=== PATIENT | male | born 1960 | race African-American/Black ===

== ENCOUNTER 2019-04-01 07:01 | Emergency (ER) | payer BC ==
[~2019-04-01] VITALS: Ht 177.8 cm; Wt 129.7 kg
[2019-04-01] MEDS ORDERED: ZYLOPRIM300 MG PO (07:13)
[2019-04-01] MEDS ORDERED: SINGULAIR 10 MG10 M1 PO (07:13)
[2019-04-01] MEDS ORDERED: INDAPAMIDE2.5 MG PO (07:13)
[2019-04-01] MEDS ORDERED: CARDIZEM CD240 MG PO (07:14)
[2019-04-01] MEDS ORDERED: METFORMIN HCL500 MG PO (07:14)
[2019-04-01] MEDS ORDERED: NORCO 10-325 T1 EACH PO (07:15)
[2019-04-01] MEDS ORDERED: LOSARTAN POTAS100 MG PO (07:15)
[2019-04-01] MEDS ORDERED: CELEBREX 200 M200 M1 PO (07:15)
[2019-04-01] MEDS ORDERED: MOBIC15 MG PO (07:44)
[2019-04-01] MEDS ORDERED: VOLTAREN GEL 1100 G1 TOP (07:44)
[2019-04-01 09:14] VITALS: BP 169/92
[2019-04-01 09:59] LABS: CLARITY CLOUDY; COLOR YELLOW; SOURCE KNEE FLUID; TOTAL VOLUME 15 mL
[2019-04-01 10:15] LABS: BF NUCLEATED CELLS 4122; BF RBC 410
[2019-04-01 10:45] LABS: BF NEUTROPHILS 85
[2019-04-01 10:46] LABS: BF MACROPHAGE 11
== END 2019-04-01 09:36 | disposition home or self-care (01) ==
LOC: ER 07:01
PROVIDERS: Emergency Medicine
DX: M25.562 Pain in left knee (principal); M54.5 Low back pain; M19.90 Unspecified osteoarthritis, unspecified site; M10.9 Gout, unspecified; Z79.899 Other long term (current) drug therapy

== ENCOUNTER 2019-08-02 13:44 | Emergency (ER) | payer BC ==
[~2019-08-02] VITALS: Ht 177.8 cm; Wt 131.5 kg
[~2019-08-02 13:44] MED LIST: CARDIZEM CD240 MG PO; CELEBREX 200 M200 M1 PO; INDAPAMIDE2.5 MG PO; LOSARTAN POTAS100 MG PO; METFORMIN HCL500 MG PO; MOBIC15 MG PO; NORCO 10-325 T1 EACH PO; SINGULAIR 10 MG10 M1 PO; VOLTAREN GEL 1100 G1 TOP; ZYLOPRIM300 MG PO
[2019-08-02 16:20] LABS: CLARITY CLOUDY; COLOR YELLOW; TOTAL VOLUME 140 mL
[2019-08-02 16:33] LABS: BF CRYSTALS No Crystals seen
[2019-08-02 16:34] LABS: BF NUCLEATED CELLS 2387; BF RBC 770
[2019-08-02 17:15] VITALS: BP 153/88
[2019-08-02 17:26] LABS: BF MACROPHAGE 16; BF NEUTROPHILS 82
[2019-08-03] MEDS ORDERED: NORCO 5-325 TA1 EAC1 PO (18:47)
== END 2019-08-02 17:16 | disposition home or self-care (01) ==
LOC: ER 13:44
PROVIDERS: Emergency Medicine
DX: M25.562 Pain in left knee (principal); M25.462 Effusion, left knee; M10.9 Gout, unspecified; I10 Essential (primary) hypertension; E11.9 Type 2 diabetes mellitus without complications; J45.909 Unspecified asthma, uncomplicated

== ENCOUNTER 2019-08-03 14:15 | Emergency (ER) | payer BC ==
[~2019-08-03] VITALS: Ht 177.8 cm; Wt 131.5 kg
[2019-08-03 15:28] LABS: ABSOLUTE NEUTROPHILS 5.8 thou/uL (1.4-8.2); BASOPHILS 0.7 % (0.0-2.0); HEMATOCRIT 43.4 % (42.0-52.0); HEMOGLOBIN 14.4 gm/dL (14.0-18.0); LYMPHOCYTES 19.1 % (24.0-44.0); MCH 27.1 pg (26.0-34.0); MCHC 33.1 g/dL (28.0-37.0); MONOCYTES 10.1 % (1.0-8.0); PLATELET COUNT 200 thou/uL (150-400); POLYS 69.1 % (36.0-66.0); RDW 15.7 % (10.5-14.5); WBC 8.4 thou/uL (4.0-11.0)
[2019-08-03 15:36] LABS: CALCIUM 9.2 mg/dL (8.5-10.1); CREATININE 1.3 mg/dL (0.7-1.3); POTASSIUM 3.5 mmol/L (3.5-5.1)
[2019-08-03 15:43] LABS: TOTAL BILIRUBIN 0.7 mg/dL (<0.1-1.0); TOTAL PROTEIN 7.5 g/dL (6.4-8.2)
[2019-08-03] MEDS ORDERED: NORCO 5-325 TA1 EAC1 PO (18:47)
[2019-08-03 19:08] VITALS: BP 151/93
== END 2019-08-03 19:10 | disposition home or self-care (01) ==
LOC: ER 14:15
PROVIDERS: Emergency Medicine
DX: M25.562 Pain in left knee (principal); M25.462 Effusion, left knee; I10 Essential (primary) hypertension; E11.9 Type 2 diabetes mellitus without complications; J45.909 Unspecified asthma, uncomplicated; M10.9 Gout, unspecified

== ENCOUNTER 2020-06-10 15:42 | Emergency (ER) | payer BC ==
[~2020-06-10] VITALS: Ht 177.8 cm; Wt 132.4 kg
[~2020-06-10 15:42] MED LIST changes: +NORCO 5-325 TA1 EAC1 PO
[2020-06-10] MEDS ORDERED: MITIGARE0.6 MG PO (16:12)
[2020-06-10] MEDS ORDERED: INDOMETHACIN 5050 M1 PO (16:12)
[2020-06-10 17:16] VITALS: BP 150/90
== END 2020-06-10 17:16 | disposition home or self-care (01) ==
LOC: ER 15:42
DX: M10.9 Gout, unspecified (principal); I10 Essential (primary) hypertension; E11.9 Type 2 diabetes mellitus without complications; J45.909 Unspecified asthma, uncomplicated; Z79.899 Other long term (current) drug therapy

== ENCOUNTER 2021-07-03 12:12 | Emergency (ER) | payer OTHER ==
[~2021-07-03] VITALS: Ht 177.8 cm; Wt 127.9 kg
[~2021-07-03 12:12] MED LIST changes: +INDOMETHACIN 5050 M1 PO; +MITIGARE0.6 MG PO
[2021-07-03 12:56] VITALS: BP 178/115
== END 2021-07-03 13:27 | disposition home or self-care (01) ==
LOC: ER 12:12
DX: U07.1 COVID-19 (principal); I10 Essential (primary) hypertension; E11.9 Type 2 diabetes mellitus without complications; J45.909 Unspecified asthma, uncomplicated; Z79.891 Long term (current) use of opiate analgesic; Z79.1 Long term (current) use of non-steroidal anti-inflammatories (NSAID); Z79.899 Other long term (current) drug therapy; Z79.84 Long term (current) use of oral hypoglycemic drugs

== ENCOUNTER 2021-07-08 18:27 | Inpatient (IN) | payer OTHER ==
[~2021-07-08] VITALS: Ht 177.8 cm; Wt 122.0 kg
--- NOTE | ~2021-07-08 | EMS ---
[place] [address] EMS Patient Care Report Name: ANITA RUSHING JR Room #: 361-P ADM IN M.R.#: [id number] Admission: 07/08/21 Attend Phys: José Manuel Baez MD Discharge: Date of : 56 Report #: [id number] THIS REPORT FOR: //name// Report Transmitted: 07/09/2021 07:44 EMS Care Summary [place], [place]/[facility] Incident [id number] @ 07/08/2021 17:35 Incident Location [id number] [place] [address] Patient ANITA RUSHING JR Male, 61 Years 1960 Patient Address [id number] [place] [address] Patient History Diabetes,Hypertension (HTN), Patient Allergies No known allergies, Patient Medications Diltiazem, Monoket, Percocet, Losartan, Atorvastatin, Metformin, Indomethacin, Allopurinol, Chief Complaint COVID Disposition Transported No Lights/[place] Reason Breathing Problem Transported To [facility] Narrative Pt tested positive for COVID -19. Pt states that his and son are both hospitalized for COVID. Pt states that he is SOA, cough, fever off and on and muscle aches. Upon arrival found pt sitting on couch, A&OX4. [place] [address] EMS Patient Care Report Name: ANITA RUSHING JR Room #: 361-P ADM IN M.R.#: [id number] Admission: 07/08/21 Attend Phys: José Manuel Beaz MD Discharge: Date of : 56 Report #: [id number] [facility] ED. NO changes en route. Pt care transferred to [place] ED nursing staff. Initial Vitals @18:00P: 101,R: 18,BP: 149/89,Pain: 0/10,GCS: 15,CO: 0,SpO2: 95,Revised Trauma: 12, @18:07P: 103,R: 18,BP: 150/88,Pain: 4/10,GCS: 15,CO: 0,SpO2: 95,Revised Trauma: 12, Assessments @17:49MENTAL:Place Oriented,Event Oriented,Person Oriented,Time Oriented,SKIN:HEENT:Head/Face: No Abnormalities,Neck/Airway: No Abnormalities,LUNG SOUNDS:Left Upper: No Abnormalities,Right Upper: No Abnormalities,Left Lower: No Abnormalities,Right Lower: No Abnormalities,ABDOMEN:Left Upper: No Abnormalities,Right Upper: No Abnormalities,Left Lower: No Abnormalities,Right Lower: No Abnormalities,PELVIS//GI:No Abnormalities,EXTREMITIES:Left Arm: No Abnormalities,Right Arm: No Abnormalities,Left Leg: No Abnormalities,Right Leg: No Abnormalities,PULSE:NEURO:No Abnormalities, Impression COVID-19 - Confirmed by testing Timeline 17:34,Call Received 17:34,Dispatch Notified 17:35,Dispatched 17:36,En Route 17:47,On Scene 17:49,At Patient 18:00,BP: 149/89 M,PULSE: 101,RR: 18 R,SPO2: 95 Ox,ETCO2: ,BG: ,PAIN: 0,GCS: 15, 18:02,Depart Scene 18:07,BP: 150/88 M,PULSE: 103,RR: 18 R,SPO2: 95 Ox,ETCO2: ,BG: ,PAIN: 4,GCS: 15, 18:18,At Destination 18:31,Call Closed Disclaimer v1.1 Copyright 2020 [employer] This EMS Care Summary contains data elements from the applicable legal record (which may be displayed differently). It is designed to provide pertinent information for the following purposes: continuity of care, clinical quality, and state data reporting. The complete legal record is available to ED staff and administrators of the receiving hospital in [facility]'s Patient Tracker. All data [address] [address] EMS Patient Care Report Name: ANITA RUSHING Room #: 361-P ADM IN M.R.#: [id number] Admission: 07/08/21 Attend Phys: José Manuel Baez MD Discharge: Date of : 56 Report #: [id number] is provided "as is."
[2021-07-08 18:27] VITALS: BP 105/61
[2021-07-08 19:19] LABS: ABSOLUTE NEUTROPHILS 2.1 thou/uL (1.4-8.2); BASOPHILS 0.5 % (0.0-2.0); EOSINOPHILS 0.1 % (0.0-3.0); HEMATOCRIT 46.1 % (42.0-52.0); HEMOGLOBIN 15.5 gm/dL (14.0-18.0); LYMPHOCYTES 27.5 % (24.0-44.0); MCH 27.1 pg (26.0-34.0); MCHC 33.6 g/dL (28.0-37.0); MCV 80.7 fL (80.0-100.0); MONOCYTES 14.9 % (1.0-8.0); PLATELET COUNT 164 thou/uL (150-400); RBC 5.71 mil/uL (4.50-6.00); RDW 14.9 % (10.5-14.5); WBC 3.6 thou/uL (4.0-11.0)
[2021-07-08 19:22] LABS: CALCIUM 8.6 mg/dL (8.5-10.1); CREATININE 2.3 mg/dL (0.7-1.3); POTASSIUM 3.4 mmol/L (3.5-5.1)
[2021-07-08 19:36] LABS: ALBUMIN 3.7 g/dL (3.4-5.0); TOTAL BILIRUBIN 0.6 mg/dL (0.2-1.0); TOTAL PROTEIN 7.9 g/dL (6.4-8.2)
[2021-07-09 06:06] LABS: HEMATOCRIT 43.5 % (42.0-52.0); HEMOGLOBIN 14.9 gm/dL (14.0-18.0); MCH 27.6 pg (26.0-34.0); MCHC 34.2 g/dL (28.0-37.0); MCV 80.7 fL (80.0-100.0); RBC 5.4 mil/uL (4.50-6.00); RDW 14.7 % (10.5-14.5); WBC 2.3 thou/uL (4.0-11.0)
[2021-07-09 06:23] LABS: CALCIUM 8.4 mg/dL (8.5-10.1); CREATININE 1.7 mg/dL (0.7-1.3); POTASSIUM 4.1 mmol/L (3.5-5.1)
[2021-07-09 06:25] VITALS: BP 163/102
--- NOTE | 2021-07-09 07:21 | EKG ---
[address] [address] ELECTROCARDIOGRAM REPORT Name: KRISTANLEASarah Kelly Room #: 170-8 ADM IN M.R.#: [id number] Admission: 07/08/21 Attend Phys: José Manuel Baez MD Discharge: Date of : 56 Report #: [id number] [facility] ED Test Date: 2021-07-08 Test Time: 18:44:50 Pat Name: ANITA RUSHING Department: Room: 170 8 Gender: M [employer] Developer: LINDA : 1960 Requested By: Constantine Alcala Order Number: [id number] MD: Irwin Díaz Measurements Intervals [place] Rate: 97 P: 28 [place]: 161 QRS: -12 QRSD: 84 T: 24 QT: 343 QTc: 436 Interpretive Statements Sinus rhythm Probable left atrial enlargement Inferior infarct, old Probable anteroseptal infarct, old Compared to ECG 02/14/2003 22:34:29 Myocardial infarct finding now present Poor R-wave progression no longer present Electronically Signed On 07-09-2021 7:21:27 CDT by Irwin Díaz [email or web address] <ELECTRONICALLY SIGNED> By: Irwin Díaz MD, FAC 07/09/21 0721 1844 1844 Irwin Díaz MD, [facility] /EPI
[2021-07-09 07:32] VITALS: BP 167/95
--- NOTE | 2021-07-09 07:36 | NUR ---
PT ORIENTED TO ROOM AND UNIT, BED LOW AND LOCKED, SIDE RAILS UPX3, CALL LIGHT IN REACH, TELE APPLIED. WILL CONTNUE TO ASSESS.
[2021-07-09 11:21] VITALS: BP 151/106
--- NOTE | 2021-07-09 14:08 | NUR ---
INITIAL ASSESSMENT: Received consult. SW reviewed chart and spoke with nursing and attending physician. Pt was admitted from home due to COVID. Pt had positive COVID test on 07/03/2021. Pt has not received a COVID vaccine. Pt placed in Enhanced Isolation. ID consulted. Pt has been febrile and is requiring 2L of O2. Pt started on IV abx and IV steorids. Remdesivir and Ivermectin started. SW spoke with pt via phone. Introduced role of SW. Pt is alert/orientated x 4. Pt reports he lives at home with his , who is also COVID positive and hospitalized ([facility] Room 362). Prior to admission, pt was independent with ADLs. No use of DME. No hx of HH services or post-acute placement. Pt's PCP is Dr. Maria Elena Garibay. Plan is for pt to discharge home when medically stable. Pt may need therapy evals to determine any discharge needs. SW is following to assist as needed with discharge planning.
[2021-07-09 16:01] VITALS: BP 132/79
[2021-07-09 16:30] LABS: URINE BILIRUBIN NEGATIVE (Negative); URINE BLOOD 1+ (Negative); URINE CLARITY CLEAR; URINE COLOR YELLOW; URINE GLUCOSE-RANDOM* NEGATIVE (Negative); URINE KETONES NEGATIVE (Negative); URINE LEUKOCYTES-REFLEX NEGATIVE (Negative); URINE NITRITE-REFLEX NEGATIVE (Negative); URINE PROTEIN (DIPSTICK) 2+ (Negative); URINE SPECIFIC GRAVITY 1.025 (1.005-1.035); URINE UROBILINOGEN 0.2 E.U./dl (0.2-1.0)
[2021-07-09 16:39] LABS: BACTERIA-REFLEX 1-9 Few /HPF (None Seen); CRYSTALS None Seen /LPF (None Seen); HYALINE CASTS 0-3 Few /LPF (None Seen); SQUAMOUS 0-3 Few /LPF (0-3); URINE RBC 1-2 Rare /HPF (NONE SEEN); URINE WBC-REFLEX 0-5 Rare /HPF (0-5)
[2021-07-09 20:05] VITALS: BP 145/91
[2021-07-10 01:06] LABS: GLYCOHEMOGLOBIN (HGB A1C) 6.2 % (4.8-5.6)
[2021-07-10 04:32] VITALS: BP 136/79
[2021-07-10 05:58] LABS: ALBUMIN 3.3 g/dL (3.4-5.0); ANION GAP 9 mmol/L (7-16); BUN 31 mg/dL (7-18); CALCIUM 8.1 mg/dL (8.5-10.1); CHLORIDE 101 mmol/L (98-107); CO2 30 mmol/L (21-32); CREATININE 1.5 mg/dL (0.7-1.3); DIRECT BILIRUBIN < 0.1 mg/dL (<0.1-0.2); GLUCOSE 103 mg/dL (74-106); PHOSPHORUS 2.9 mg/dL (2.5-4.9); POTASSIUM 4.5 mmol/L (3.5-5.1); SGOT 63 U/L (15-37); SGPT 47 U/L (30-65); SODIUM 140 mmol/L (136-145); TOTAL BILIRUBIN 0.4 mg/dL (0.2-1.0); TOTAL PROTEIN 7.5 g/dL (6.4-8.2)
--- NOTE | 2021-07-10 05:58 | HC ---
[facility] [place] [address] CONSULTATION Name: ANITA RUSHING JR Room #: 361-P ADM IN M.R.#: [id number] Admission: 07/08/21 Attend Phys: José Manuel Baez MD Discharge: Date of : 56 Report #: [id number] THIS REPORT FOR: cc: Maria Elena Garibay MD,Maria Elena Nguyễn,David Epps MD ~ DATE OF SERVICE: 07/09/2021 INFECTIOUS DISEASE CONSULTATION ATTENDING PHYSICIAN: Dr. Baez REASON FOR EVALUATION: COVID-19 infection, complicated by pneumonitis and respiratory failure. HISTORY OF PRESENT ILLNESS: Chart reviewed and the patient examined. This is a 61-year-old gentleman with history of diabetes mellitus, hypertension, who was experiencing some dyspnea. There has been progressive cough, somewhat productive. Fevers associated with generalized weakness. He has had some diarrhea. Notes he has some diminished overall p.o. intake as well. It is notable he has had a diagnosis of family members with COVID. He was confirmed to be positive on 07/03. He had not received the vaccine during his initial evaluation. X-ray did show evidence of bilateral infiltrates. Lactic acid 0.9. Procalcitonin 0.16. Creatinine was up to 2.3. Blood cultures are sterile thus far. Since admission, he has had some low-grade temperature elevations to 100.9 and has required supplemental oxygen 2 L per nasal cannula. ALLERGIES: None known. CURRENT MEDICATIONS: Include ____ acid, enoxaparin, dexamethasone, allopurinol, diltiazem CD, ascorbic acid, insulin lispro, pantoprazole, hydrocodone as needed, zinc. PAST MEDICAL HISTORY: As described above, diabetes mellitus, history of hypertension, gout, asthma. SOCIAL HISTORY: Nonsmoker. No ethanol or illicit drug use. FAMILY HISTORY: Noncontributory. REVIEW OF SYSTEMS: Otherwise, unremarkable. PHYSICAL EXAMINATION: GENERAL: He is alert, cooperative, he is in [id number] distress. He is generally lucid. VITAL SIGNS: Temperature 97.9, pulse 75, respirations 16, blood pressure [facility] [address] [place] [address] CONSULTATION Name: ANITA RUSHING Room #: 361-P [facility] IN [facility].#: [id number] Admission: 07/08/21 Attend Phys: José Manuel Baez MD Discharge: Date of : 56 Report #: [id number] 151/106. SKIN: Warm, dry, no rashes. HEENT: Normocephalic. Extraocular muscles intact. Nasal cannula in place. NECK: Supple. LUNGS: He has got bilateral few scattered coarse breath sounds. HEART: Regular rhythm. I do not appreciate a murmur. ABDOMEN: Obese, firm, nontender. EXTREMITIES: No cyanosis. GENITOURINARY AND RECTAL: Deferred. LABORATORY DATA: Blood cultures sterile thus far. Electrolytes: Sodium 139, potassium 4.1, chloride ____, bicarbonate is 28, anion gap of 10. BUN and creatinine 33 and 1.7. Glucose of 137. CBC: White count of 2.3, H and H of 14.9 and 43.5, platelets of 152. LFTs unremarkable, borderline elevated AST of 67. Albumin 3.7, total protein 7.9. Procalcitonin 0.16. Lactic acid 0.9. ASSESSMENT AND PLAN: COVID-19 infection, complicated by pneumonitis and respiratory failure in the setting of diabetes mellitus and hypertension and asthma. We will continue combination therapy directed against coronavirus. We will add ivermectin, Actemra, remdesivir. Estimated GFR ____ 50. We will try to obtain sputum for culture. Initiate therapy with ceftriaxone, possible secondary bacterial pneumonitis. Check some additional diagnostic testing. <ELECTRONICALLY SIGNED> By: David Nguyễn MD 07/10/21 0558 [id number] [id number] David Nguyễn MD /nt
--- NOTE | 2021-07-10 06:42 | NUR ---
O2 at 2L/NC.Reported shortness of breath with exertion. Encouraged to keep O2 on wbile ambulating to bathroom.O2 extension provided but pt. feels like he's not getting enough oxygen. O2 sat checked and reads 97%. Cont. on enhanced precaution , afebrile. Visited with last night.
[2021-07-10 07:36] VITALS: BP 136/70
--- NOTE | 2021-07-10 09:38 | NUR ---
Assess due to pt admit with COVID pneumonia. Hx diabetes which is well controlled, A1C 6.2. No answer when tried to call room. Possible wt loss 17 lb as pt reported a wt 289 but bedscale showing 269 lb. No reports of decreased appetite. On carb controlled diet. Low nutrition risk at this time and will follow intake and wt trends as appropriate.
[2021-07-10 11:15] VITALS: BP 136/75
--- NOTE | 2021-07-10 13:01 | NUR ---
SW reviewed chart and spoke with nursing and attending physician. Pt remains in Enhanced Isolation due to COVID. Pt is afebrile and currently on room air. Pt was on 2L earlier today. Pt is on IV abx and IV steroids. Pt started on courses of Ivermectin and Remdesivir. PT/OT evals ordered to evaluate pt for discharge needs. SW is following to assist as needed with discharge planning.
[2021-07-10 15:44] VITALS: BP 137/74
--- NOTE | 2021-07-10 18:26 | NUR ---
RN ASSUMED PT'S CARE AT 0700AM, PT IS A&OX4, PT 'S SOB HAS IMPROVED, PT'S O2 IS OFF TODAY, PT'S VS AND O2SAT ARE STABLE , PT DENIES PAIN AT DAY SHIFT.
[2021-07-10 19:55] VITALS: BP 154/74
[2021-07-11 06:35] VITALS: BP 136/72
--- NOTE | 2021-07-11 07:11 | NUR ---
C/O paola knee pain last night and was given hydrocodone with relief. Cough medicine also given. He requested not to be woken up till after 0600 so he can sleep. He stated he slept fair during the night.Cont. on enhanced precaution , afebrile. Up ad anika in room with steady gait. Tolerating room air well with O2 sat in the low 90's. No respiratory distress.
[2021-07-11 07:42] LABS: ABSOLUTE NEUTROPHILS 2.5 thou/uL (1.4-8.2); BASOPHILS 0.1 % (0.0-2.0); HEMATOCRIT 41.1 % (42.0-52.0); HEMOGLOBIN 13.8 gm/dL (14.0-18.0); LYMPHOCYTES 20.1 % (24.0-44.0); MCH 26.9 pg (26.0-34.0); MCHC 33.5 g/dL (28.0-37.0); MCV 80.5 fL (80.0-100.0); MONOCYTES 14.6 % (1.0-8.0); PLATELET COUNT 166 thou/uL (150-400); POLYS 65.2 % (36.0-66.0); RBC 5.11 mil/uL (4.50-6.00); RDW 14.7 % (10.5-14.5); WBC 3.8 thou/uL (4.0-11.0)
[2021-07-11 08:10] LABS: ALBUMIN 3.2 g/dL (3.4-5.0); CALCIUM 8.4 mg/dL (8.5-10.1); CREATININE 1.3 mg/dL (0.7-1.3); DIRECT BILIRUBIN 0.1 mg/dL (<0.1-0.2); PHOSPHORUS 2.8 mg/dL (2.5-4.9); POTASSIUM 3.7 mmol/L (3.5-5.1); TOTAL BILIRUBIN 0.4 mg/dL (0.2-1.0)
[2021-07-11 09:20] VITALS: BP 173/78
[2021-07-11 12:00] VITALS: BP 159/93
--- NOTE | 2021-07-11 15:44 | NUR ---
SW reviewed chart and spoke with nursing and attending physician. Pt remains in Enhanced Isolation due to COVID. Pt is afebrile and not requiring O2. Pt is on IV steroids and Remdesivir. IV abx discontinued today. Pt is up ad anika and has been able to visit his . Plan is for pt to discharge home when medically stable. AUBREE is following to assist as needed with discharge planning.
[2021-07-11 16:00] VITALS: BP 153/86
--- NOTE | 2021-07-11 18:00 | NUR ---
PT'S IS IN THE ROOM NEXT DOOR TO HIM AND HE HAS BEEN VISITING HER...SHE WANTED TO USE COMMODE AND HE GOT HER UP ALONE AND HER [employer] CAME APART... I STRONGLY EXPLAINED TO HIM THAT SHE CAN NOT RECOVER FROM GETTING OUT OF BED AND HAS NO RESERVE LEFT FOR SUCH ACTIVITIES. I EXPLAINED HE WAS NOT TO GET HER OUT OF BED UNDER ANY CIRCUMSTANCES..
[2021-07-11 19:41] VITALS: BP 143/90
[2021-07-12 06:56] LABS: ALBUMIN 3.1 g/dL (3.4-5.0); CALCIUM 8.3 mg/dL (8.5-10.1); CREATININE 1.1 mg/dL (0.7-1.3); DIRECT BILIRUBIN 0.1 mg/dL (<0.1-0.2); PHOSPHORUS 2.6 mg/dL (2.5-4.9); POTASSIUM 3.9 mmol/L (3.5-5.1); TOTAL BILIRUBIN 0.3 mg/dL (0.2-1.0)
--- NOTE | 2021-07-12 07:09 | NUR ---
PT MAKING PROGRESS TOWARDS GOALS. ON ROOM AIR THROUGHOUT THE NIGHT. MOVING BETWEEN RM 361 AND 362 (WHERE HIS IS LOCATED) WITHOUT ANY OBSERVABLE SOA.
[2021-07-12 07:50] VITALS: BP 173/105
[2021-07-12 11:20] VITALS: BP 161/96
--- NOTE | 2021-07-12 14:39 | NUR ---
SW reviewed chart and spoke with nursing and attending physician. Pt remains in Enhanced Isolation. Pt is afebrile and not requiring O2. Pt is on IV steroids and Remdesivir. SW spoke with pt via phone to discuss discharge plan. Pt states he will be discharging home tomorrow. Pt declines having any discharge needs. Pt states he will have family available to provide transportation home. SW is available to assist should needs arise.
[2021-07-12] MEDS ORDERED: DECADRON6 MG PO (15:22)
[2021-07-12] MEDS ORDERED: ACEROLA C500 MG PO (15:22)
[2021-07-12] MEDS ORDERED: PEPCID20 MG PO (15:22)
[2021-07-12] MEDS ORDERED: ASA81BEC PO (15:29)
[2021-07-12 15:49] VITALS: BP 160/93
[2021-07-12 17:17] VITALS: BP 160/93
--- NOTE | 2021-07-12 18:56 | NUR ---
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
== END 2021-07-12 18:50 | disposition home or self-care (01) | DRG 177 ==
LOC: ER 18:27 → EROBS 20:19 → 3W 07-09 07:56
PROVIDERS: Nurse Practitioner; Nurse Practitioner Family; Specialist; ADMIT Hospitalist; ATTEND Hospitalist
PROC: XW033E5 Introduction of Remdesivir Anti-infective into Peripheral Vein, Percutaneous Approach, New Technology Group 5 (ICD-10-PCS; principal; 2021-07-09)
PROC: XW033H5 Introduction of Tocilizumab into Peripheral Vein, Percutaneous Approach, New Technology Group 5 (ICD-10-PCS; principal; 2021-07-09)
DX: U07.1 COVID-19 (principal); J96.01 Acute respiratory failure with hypoxia; J12.82 Pneumonia due to coronavirus disease 2019; N17.9 Acute kidney failure, unspecified; M10.9 Gout, unspecified; I10 Essential (primary) hypertension; E11.9 Type 2 diabetes mellitus without complications; J45.909 Unspecified asthma, uncomplicated; Z79.899 Other long term (current) drug therapy
CPT/HCPCS: 10879

== ENCOUNTER 2021-08-09 11:31 | Emergency (ER) | payer OTHER ==
[~2021-08-09 11:31] MED LIST changes: +ACEROLA C500 MG PO; +ASA81BEC PO; +DECADRON6 MG PO; +PEPCID20 MG PO
== END 2021-08-09 13:51 | disposition home or self-care (01) ==
LOC: ER 11:31
DX: Z20.822 Contact with and (suspected) exposure to COVID-19 (principal); Z53.21 Procedure and treatment not carried out due to patient leaving prior to being seen by health care provider